=== PATIENT | female | born 1960 | race Caucasian/White ===

== ENCOUNTER → 2016-07-11 | Outpatient (CLI) | payer MEDICAID ==
[~2016-07-11] MED LIST: FAMILY PHARMAC325 MG PO; PERCOCET 5/3251 EACH PO; POTASSIUM CHLO10 ME3 PO
--- NOTE | 2016-07-15 09:12 | RADIOLOGY REPORT PS360 ---
DIG MAMM-SCREEN LISET W/CAD CAD Screening COMPARISON: Analog mammograms 05/11/2007 and digital mammograms 07/20/2012 INDICATION: There is no personal or family history of breast cancer. TECHNIQUE: Standard CC and MLO images were obtained. R2 CAD reviewed. FINDINGS: Prominent heterogenic fibroglandular densities are seen in the central portions of both breasts. There is a possible asymmetric density deep within the central portion of the right breast which was not definitely seen on the previous digital mammogram. Recommend the patient return for spot compression CC view and 90 degrees lateral view for better evaluation and possibly ultrasound if this proves to be a true lesion. There are no suspicious microcalcifications. There is a benign-appearing calcification left breast. IMPRESSION: Moderate breast density with possible new asymmetric density right breast and suggest patient return for additional imaging right breast BI-RADS CATEGORY: 0_Incomplete: Need additional imaging RECOMMENDED FOLLOWUP: ADD ADDITIONAL IMAGING (A letter has been sent to the patient regarding results of the study.)
== END ==
LOC: RAD 15:46
DX: Z12.31 Encounter for screening mammogram for malignant neoplasm of breast (principal)
CPT/HCPCS: G0202